=== PATIENT | male | born 1995 | race Caucasian/White ===

== ENCOUNTER 2024-02-26 18:06 | Emergency (ER) | payer SELFPAY ==
[2024-02-26 18:20] VITALS: BP 134/79; PULSE 92; RESP 18; TEMP 36.6; O2SAT 99; BMI 27.6
--- NOTE | 2024-02-26 18:38 | W.ED.SKABFB ---
HPI - Skin/Abscess/Foreign Bdy General: Chief complaint: Skin/Abscess/Foreign Body Stated complaint: lumps behind left ear, painful and larger Time Seen by Provider: 02/26/24 18:34 History of Present Illness: 28-year-old male patient comes in today with some lymphadenitis to the posterior left ear. Patient reports enlarged nodes for the last 6 to 7 months. Patient appears nontoxic. Patient is concerned for cancer. Patient denies any chronic medical problems. Related Data Allergies Allergy/AdvReac Type Severity Reaction Status Date / Time No Known Allergies Allergy Verified 02/26/24 18:28 Review of Systems General: Reports: 10 or more systems reviewed and unremarkable except in HPI and below Physical Exam Const: COMMON NORMALS: alert HENMT: COMMON NORMALS: normocephalic HEAD & SCALP: normocephalic Neck/C-Spine: COMMON NORMALS: full ROM Lymph: OTHER: Small palpable lymph nodes left postauricular area Resp: COMMON NORMALS: normal respiratory effort Cardio: COMMON NORMALS: regular rate RATE: regular rate GI: COMMON NORMALS: Soft to palpation PALPATION: Yes Soft to palpation Back/Pelvis: COMMON NORMALS: thoracic and lumbar spine normal to inspection Extremity: COMMON NORMALS: full ROM Neuro: SENSORIUM/ORIENTATION: Yes alert Skin: COMMON NORMALS: turgor normal GENERAL SKIN EXAM: turgor normal Course Vital Signs: Vital signs: Vital Signs Temperature 97.9 F 02/26/24 18:20 Pulse Rate 77 02/26/24 19:03 Respiratory Rate 18 02/26/24 18:20 Blood Pressure 134/79 02/26/24 18:20 Pulse Oximetry 95 02/26/24 19:03 Oxygen Delivery Me thod Room Air 02/26/24 18:20 MDM - Skin/Abscess/Foreign Bdy Medicial Decision Making 28-year-old male patient comes in with some enlargement of lymph nodes to the left postauricular area. Patient was concerned due to the persistence of the lymphadenopathy for the last 6 to 7 months. Patient was seen yesterday at a outside emergency department and was told he had some lymph nodes that were enlarged and he needed to just follow-up with his primary care. Patient came here today due to not having primary care and concern for cancer. Patient appears nontoxic. Patient appears no acute distress. Differential diagnosis includes not limited to lymphadenitis, upper respiratory infection, viral syndrome, cat scratch fever. CBC was unremarkable. Patient has some lymphadenopathy most likely reactive to a respiratory viral infection. Recommend patient follow-up with primary care for further evaluation. Case management was requested to assist with primary care follow-up. Patient reported understanding and agreed to plan. Lab Data 02/26/24 18:55 Laboratory Results WBC 5.38 10^3/uL (3.29-11.43) 02/26/24 18:55 RBC 5.61 10^6/uL (3.85-5.65) 02/26/24 18:55 Hgb 16.30 g/dL (11.27-16.99) 02/26/24 18:55 Hct 46.1 % (37-53) 02/26/24 18: MCV 82.2 fl (82-101) 02/26/24 18: MCH 29.1 pg (27-33) 02/26/24 18: MCHC 35.4 g/dL (30-55) 02/26/24 18:55 RDW 11.9 % (12.1-15.1) L 02/26/24 18:55 Plt Count 239 10^3/cmm (157-399) 02/26/24 18:55 MPV 10.4 fL (7.4-10.4) 02/26/24 18:55 Neut % (Auto) 56.1 % 02/26/24 18:55 Lymph % (Auto) 32.9 % 02/26/24 18:55 [place] % (Auto) 7.4 % 02/26/24 18: Eos % (Auto) 3.0 % 02/26/24 18: Baso % (Auto) 0.4 % 02/26/24 18:55 Neut # (Auto) 3.02 10^3/uL (1.8-7.7) 02/26/24 18:55 Lymph # (Auto) 1.8 10^3/uL (0.8-4.8) 02/26/24 18:55 [place] # (Auto) 0.4 10^3/uL (0.2-0.9) 02/26/24 18:55 Eos # (Auto) 0.2 10^3/uL (0.0-0.8) 02/26/24 18:55 Baso # (Auto) 0.0 10^3/uL (0.0-0.1) 02/26/24 18:55 Nucleated RBC % (auto) 0 % 02/26/24 18:55 Nucleated RBCs # 0.0 /100WBC 02/26/24 18:55 No radiology studies performed this visit Discharge Plan Discharge Patient Disposition: Home Clinical Impression: Lymphadenopathy of head and neck region Condition: Stable Discharge Orders: Discharge ED (Routine); Ordered 02/26/24 Ordered By: Ean Jackson Discharge Diet: Usual diet Discharge Activity: Increase activity as tolerated Patient Instructions: Lymphadenopathy (ED) Activity Restrictions/Additional Instructions: Case management will contact you regarding follow-up with primary care. Thank you for choosing [facility] for your healthcare needs today. Please realize that you were seen in the emergency department and that we are providing you with an emergency medical screening exam and this may not be a complete and all exclusive of all testing and/or medical workup we may need to determine your element or severity of your illness. It is very important that you follow-up as instructed with your primary care provider or specialist for the additional evaluation and to discuss your medical treatment plan. You may return to the emergency department should you have concerns or if your condition changes or worsens in any way. Coding Level of Care Code ED [facility] for [facility]
[2024-02-26 19:00] LABS: Basophils % 0.4 %; Eosinophils # 0.2 10^3/uL (0.0-0.8); Hematocrit 46.1 % (37-53); Lymphocytes # 1.8 10^3/uL (0.8-4.8); Lymphocytes % 32.9 %; Mean Corpuscular HGB Conc 35.4 g/dL (30-55); Mean Corpuscular Hemoglobin 29.1 pg (27-33); Mean Corpuscular Volume 82.2 fl (82-101); Mean Platelet Volume 10.4 fL (7.4-10.4); Monocytes # 0.4 10^3/uL (0.2-0.9); Monocytes % 7.4 %; Neutrophils # 3.02 10^3/uL (1.8-7.7); Neutrophils % 56.1 %; Nucleated Red Blood Cells % 0 %; Platelet Count 239 10^3/cmm (157-399); Red Blood Count 5.61 10^6/uL (3.85-5.65); Red Cell Distribution Width 11.9 % (12.1-15.1); White Blood Count 5.38 10^3/uL (3.29-11.43)
[2024-02-26 19:03] VITALS: PULSE 77; O2SAT 95
[2024-02-26 19:49] VITALS: BP 134/81; PULSE 69; O2SAT 97
--- NOTE | 2024-02-28 04:07 | DCPLANNER ---
Message sent to clinics to establish a PCP
== END 2024-02-26 19:40 | disposition home or self-care (01) ==
PROVIDERS: Emergency Provider Nurse Practitioner Family
DX: R59.0 Localized enlarged lymph nodes (principal)
CPT/HCPCS: 36415; 85025; 99283